=== PATIENT | female | born 1985 | race American Indian/Alaskan Native ===

== ENCOUNTER 2017-12-30 11:56 | Emergency (ER) | payer OTHER ==
[~2017-12-30] VITALS: Ht 162.6 cm; Wt 63.5 kg
[~2017-12-30 11:56] MED LIST: Cleocin HCl150 MG PO; IBUP400 PO; IBUP600 PO; KETO50 PO; Lantus100 UNIT/1 SC; NAPR500 PO; Norco 5-325 Ta1 EACH PO; Peridex480 ML SS; TRAM50 PO; Ultram50 MG PO; Veetids 500500 MG PO
[2017-12-30] MEDS ORDERED: Veetids 500500 MG PO (12:35)
== END 2017-12-30 12:40 | disposition home or self-care (01) ==
LOC: ER 11:56
DX: K02.9 Dental caries, unspecified (principal); E11.9 Type 2 diabetes mellitus without complications; F17.210 Nicotine dependence, cigarettes, uncomplicated
CPT/HCPCS: 99282

== ENCOUNTER → 2018-11-08 | Outpatient (CLI) | payer OTHER | END | disposition home or self-care (01) | LOC: LAB 14:01 → LAB SHORT 14:01 | DX: E11.65 Type 2 diabetes mellitus with hyperglycemia (principal) | CPT/HCPCS: 82043 ==

== ENCOUNTER 2019-12-21 10:12 | Emergency (ER) | payer OTHER ==
[~2019-12-21] VITALS: Ht 162.6 cm; Wt 65.4 kg
[2019-12-21] MEDS ORDERED: Bactrim Ds Tab1 EACH PO (11:26)
[2019-12-21] MEDS ORDERED: CEPH500 PO (11:26)
== END 2019-12-21 11:40 | disposition home or self-care (01) ==
LOC: ER 10:12
DX: E11.621 Type 2 diabetes mellitus with foot ulcer (principal); L97.529 Non-pressure chronic ulcer of other part of left foot with unspecified severity; L02.612 Cutaneous abscess of left foot; F17.210 Nicotine dependence, cigarettes, uncomplicated
CPT/HCPCS: 73620; 99283-25

== ENCOUNTER 2020-03-23 13:56 | Emergency (ER) | payer OTHER ==
[~2020-03-23] VITALS: Ht 162.6 cm; Wt 64.9 kg
[~2020-03-23 13:56] MED LIST changes: +Bactrim Ds Tab1 EACH PO; +CEPH500 PO
[2020-03-23 15:45] LABS: Source, Urine Clean Catch
[2020-03-23 15:57] LABS: Appearance, Urine Hazy (Clear); Color, Urine Yellow (P-Yellow); Glucose Qualitative, Urine 4+ (Neg); Ketones, Urine 1+ (Neg); Leukocyte Esterase, Urine 1+ (Neg); Nitrite, Urine Neg (Neg); Protein, Urine Neg (Neg)
[2020-03-23 15:58] LABS: Bilirubin, Urine Neg (Neg); Blood, Urine Neg (Neg); Urobilinogen, Urine NORM (Normal)
[2020-03-23 16:08] LABS: Bacteria Mod /hpf; Red Blood Cells, Urine 0-2 /hpf (0-2); Squamous Epithelial Cells Mod /hpf (Few); White Blood Cells, Urine 0-2 /hpf (0-5)
[2020-03-23 17:05] LABS: BASOPHILS ABSOLUTE AUTO 0.06 K/mm3 (0.00-0.23); BASOPHILS PERCENT AUTO 1 % (0-2); EOSINOPHILS ABSOLUTE AUTO 0.19 K/mm3 (0.00-0.68); EOSINOPHILS PERCENT AUTO 3 % (0-6); Hematocrit 42.5 % (33.0-51.0); Hemoglobin 13.8 g/dL (11.5-16.0); IMMATURE GRAN ABSOLUTE AUTO 0.04 K/mm3 (0.00-0.10); IMMATURE GRAN PERCENT AUTO 1 % (0-1); LYMPHOCYTES ABSOLUTE AUTO 2.49 K/mm3 (0.84-5.20); LYMPHOCYTES PERCENT AUTO 35 % (21-46); MONOCYTES ABSOLUTE AUTO 0.46 K/mm3 (0.16-1.47); MONOCYTES PERCENT AUTO 6 % (4-13); Mean Corpuscular HGB 28.5 pg (26.0-34.0); Mean Corpuscular HGB Conc 32.5 g/dL (31.5-36.5); Mean Corpuscular Volume 88 fL (80-100); Mean Platelet Volume 9.9 fL (9.1-12.4); NEUTROPHILS ABSOLUTE AUTO 3.94 K/mm3 (1.96-9.15); NEUTROPHILS PERCENT AUTO 55 % (41-73); Platelet Count 266 K/mm3 (150-400); RDW Coefficient Variation 13.1 % (11.7-14.2); RDW Standard Deviation 42.4 fL (35.1-46.3); Red Blood Cell Count 4.84 M/mm3 (3.80-5.20); White Blood Cell Count 7.18 K/mm3 (4.00-11.30)
[2020-03-23] MEDS ORDERED: METF500 PO (17:13)
[2020-03-23 17:21] LABS: Anion Gap 5 mmol/L (6-16); Blood Urea Nitrogen 9 mg/dL (8-24); Bun/Creatinine Ratio 16.6 (12.0-20.0); CO2, Blood 27 mmol/L (21-32); Calcium, Blood 8.5 mg/dL (8.5-10.1); Chloride, Blood 102 mmol/L (98-108); Creatinine, Blood 0.54 mg/dL (0.40-1.00); Glomerular Filtration Rate >60 (60-); Glucose, Blood 408 mg/dL (70-99); Sodium, Blood 134 mmol/L (136-145)
== END 2020-03-23 18:16 | disposition home or self-care (01) ==
LOC: ER 13:56
PROVIDERS: Emergency Medicine; Physician Assistant
DX: R10.2 Pelvic and perineal pain (principal); E11.65 Type 2 diabetes mellitus with hyperglycemia; F17.210 Nicotine dependence, cigarettes, uncomplicated
CPT/HCPCS: 36415; 76830; 76856; 80048; 81001; 81025; 85025; 87086; 87147; 99284-25

== ENCOUNTER 2021-02-28 14:42 | Emergency (ER) | payer OTHER ==
[~2021-02-28] VITALS: Ht 162.6 cm; Wt 74.8 kg
[~2021-02-28 14:42] MED LIST changes: +METF500 PO
[2021-02-28 17:06] LABS: Source, Urine Clean Catch
[2021-02-28 17:12] LABS: Appearance, Urine Clear (Clear); Bilirubin, Urine Neg (Neg); Blood, Urine Neg (Neg); Color, Urine Yellow (P-Yellow); Glucose Qualitative, Urine 4+ (Neg); Ketones, Urine Neg (Neg); Leukocyte Esterase, Urine 1+ (Neg); Nitrite, Urine Neg (Neg); Protein, Urine Neg (Neg); Specific Gravity, Urine 1.015 (1.003-1.022); Urobilinogen, Urine NORM (Normal)
[2021-02-28 17:24] LABS: Bacteria Few /hpf; Mucus Light (0-Heavy); Red Blood Cells, Urine 0-2 /hpf (0-2); Squamous Epithelial Cells Mod /hpf (Few); Transitional Epithelial Cells Few /hpf (0-Rare); Yeast/Fungi Urine Few /hpf
== END 2021-02-28 18:13 | disposition left against medical advice (07) ==
LOC: ER 14:42
PROVIDERS: Physician Assistant
DX: N89.8 Other specified noninflammatory disorders of vagina (principal); Z53.21 Procedure and treatment not carried out due to patient leaving prior to being seen by health care provider
CPT/HCPCS: 81001; 81025; 82947; 99283

== ENCOUNTER 2021-08-18 09:36 | Emergency (ER) | payer OTHER ==
[~2021-08-18] VITALS: Ht 162.6 cm; Wt 63.5 kg
[2021-08-18 10:52] LABS: Source, Urine Clean Catch
[2021-08-18 11:10] LABS: Appearance, Urine Clear (Clear); Bilirubin, Urine Neg (Neg); Blood, Urine Neg (Neg); Color, Urine Yellow (P-Yellow); Glucose Qualitative, Urine 4+ (Neg); Ketones, Urine Neg (Neg); Leukocyte Esterase, Urine Neg (Neg); Nitrite, Urine Neg (Neg); Protein, Urine Neg (Neg); Urobilinogen, Urine NORM (Normal)
[2021-08-18] MEDS ORDERED: Bactrim Ds Tab1 EACH PO (12:00)
[2021-08-18] MEDS ORDERED: IBU600 M1 PO (12:01)
== END 2021-08-18 12:14 | disposition home or self-care (01) ==
LOC: ER 09:36
PROVIDERS: Physician Assistant
DX: L02.414 Cutaneous abscess of left upper limb (principal); E11.9 Type 2 diabetes mellitus without complications; F17.210 Nicotine dependence, cigarettes, uncomplicated; Z79.84 Long term (current) use of oral hypoglycemic drugs
CPT/HCPCS: 10060; 81003; 81025; 99283-25; A9270

== ENCOUNTER 2021-12-16 13:09 | Emergency (ER) | payer OTHER ==
[~2021-12-16] VITALS: Ht 157.5 cm; Wt 56.7 kg
[~2021-12-16 13:09] MED LIST changes: +IBU600 M1 PO; +MONDOXYNE NL100 MG PO; +ONDA4ODT MM
[2021-12-16] MEDS ORDERED: Bactrim Ds Tab1 EACH PO (15:00)
[2021-12-16] MEDS ORDERED: CEPH500 PO (15:00)
== END 2021-12-16 15:07 | disposition home or self-care (01) ==
LOC: ER 13:09
DX: L02.413 Cutaneous abscess of right upper limb (principal); E11.9 Type 2 diabetes mellitus without complications; F17.210 Nicotine dependence, cigarettes, uncomplicated; Z79.84 Long term (current) use of oral hypoglycemic drugs; Z79.899 Other long term (current) drug therapy
CPT/HCPCS: 99283

== ENCOUNTER 2024-07-12 14:38 | Emergency (ER) | payer OTHER ==
[~2024-07-12] VITALS: Ht 170.2 cm; Wt 63.5 kg
[~2024-07-12 14:38] MED LIST changes: +Amoxicillin500 MG PO
[2024-07-12 15:02] VITALS: BP 150/89
[2024-07-12 15:35] LABS: BASOPHILS ABSOLUTE AUTO 0.07 K/mm3 (0.00-0.23); BASOPHILS PERCENT AUTO 1 % (0-2); EOSINOPHILS ABSOLUTE AUTO 0.23 K/mm3 (0.00-0.68); EOSINOPHILS PERCENT AUTO 2 % (0-6); Hematocrit 37.3 % (33.0-51.0); Hemoglobin 12.6 g/dL (11.5-16.0); IMMATURE GRAN ABSOLUTE AUTO 0.04 K/mm3 (0.00-0.10); IMMATURE GRAN PERCENT AUTO 0 % (0-1); LYMPHOCYTES ABSOLUTE AUTO 2.02 K/mm3 (0.84-5.20); LYMPHOCYTES PERCENT AUTO 20 % (21-46); MONOCYTES ABSOLUTE AUTO 0.57 K/mm3 (0.16-1.47); MONOCYTES PERCENT AUTO 6 % (4-13); Mean Corpuscular HGB 28.6 pg (26.0-34.0); Mean Corpuscular HGB Conc 33.8 g/dL (31.5-36.5); Mean Corpuscular Volume 85 fL (80-100); Mean Platelet Volume 9.6 fL (9.1-12.4); NEUTROPHILS ABSOLUTE AUTO 7.01 K/mm3 (1.96-9.15); NEUTROPHILS PERCENT AUTO 71 % (41-73); Platelet Count 289 K/mm3 (150-400); RDW Coefficient Variation 12.8 % (11.7-14.2); RDW Standard Deviation 39.6 fL (35.1-46.3); Red Blood Cell Count 4.41 M/mm3 (3.80-5.20); White Blood Cell Count 9.94 K/mm3 (4.00-11.30)
[2024-07-12 15:44] LABS: Albumin, Blood 3.2 g/dL (3.4-5.0); Albumin/Globulin Ratio 0.6 (0.8-1.8); Bilirubin, Total 0.2 mg/dL (0.1-1.0); Bun/Creatinine Ratio 22.1 (12.0-20.0); Calcium, Blood 9.2 mg/dL (8.5-10.1); Creatinine, Blood 0.68 mg/dL (0.40-1.00); Globulin, Blood 5.2 g/dL (2.2-4.0); Total Protein, Blood 8.4 g/dL (6.4-8.2)
[2024-07-12] MEDS ORDERED: Ketorolac Tromethamine 15mg Vial IM ONE (15:45)
[2024-07-12] MEDS ORDERED: SULTRIDS PO (17:58)
== END 2024-07-12 18:20 | disposition home or self-care (01) ==
LOC: ER 14:38
PROVIDERS: Physician Assistant
DX: L03.115 Cellulitis of right lower limb (principal); L02.611 Cutaneous abscess of right foot; E11.9 Type 2 diabetes mellitus without complications; F17.210 Nicotine dependence, cigarettes, uncomplicated
CPT/HCPCS: 10060; 73630; 80053; 85025; 96372-59; 99283-25; J1885

== ENCOUNTER 2024-11-13 11:27 | Emergency (ER) | payer OTHER ==
[~2024-11-13] VITALS: Ht 162.6 cm; Wt 60.8 kg
[~2024-11-13 11:27] MED LIST changes: +SULTRIDS PO
[2024-11-13 11:40] VITALS: BP 171/98
[2024-11-13 12:20] LABS: BASOPHILS ABSOLUTE AUTO 0.06 K/mm3 (0.00-0.23); BASOPHILS PERCENT AUTO 1 % (0-2); EOSINOPHILS ABSOLUTE AUTO 0.22 K/mm3 (0.00-0.68); EOSINOPHILS PERCENT AUTO 4 % (0-6); Hematocrit 38.7 % (33.0-51.0); Hemoglobin 13.1 g/dL (11.5-16.0); IMMATURE GRAN ABSOLUTE AUTO 0.01 K/mm3 (0.00-0.10); IMMATURE GRAN PERCENT AUTO 0 % (0-1); LYMPHOCYTES ABSOLUTE AUTO 2.48 K/mm3 (0.84-5.20); LYMPHOCYTES PERCENT AUTO 45 % (21-46); MONOCYTES ABSOLUTE AUTO 0.44 K/mm3 (0.16-1.47); MONOCYTES PERCENT AUTO 8 % (4-13); Mean Corpuscular HGB 28.7 pg (26.0-34.0); Mean Corpuscular HGB Conc 33.9 g/dL (31.5-36.5); Mean Corpuscular Volume 85 fL (80-100); Mean Platelet Volume 9.5 fL (9.1-12.4); NEUTROPHILS ABSOLUTE AUTO 2.32 K/mm3 (1.96-9.15); NEUTROPHILS PERCENT AUTO 42 % (41-73); Platelet Count 280 K/mm3 (150-400); RDW Coefficient Variation 13.4 % (11.7-14.2); RDW Standard Deviation 41.5 fL (35.1-46.3); Red Blood Cell Count 4.56 M/mm3 (3.80-5.20); White Blood Cell Count 5.53 K/mm3 (4.00-11.30)
[2024-11-13 13:00] LABS: Albumin, Blood 3.7 g/dL (3.4-5.0); Albumin/Globulin Ratio 0.9 (0.8-1.8); Bilirubin, Total 0.4 mg/dL (0.1-1.0); Bun/Creatinine Ratio 23.7 (12.0-20.0); Calcium, Blood 8.9 mg/dL (8.5-10.1); Creatinine, Blood 0.63 mg/dL (0.40-1.00); Potassium, Blood 4.5 mmol/L (3.5-5.5); Total Protein, Blood 7.7 g/dL (6.4-8.2)
[2024-11-13] MEDS ORDERED: BACITO TOP (14:34)
[2024-11-13] MEDS ORDERED: Cephalexin500 MG PO (14:34)
== END 2024-11-13 14:37 | disposition home or self-care (01) ==
LOC: ER 11:27
PROVIDERS: Student in an Organized Health Care Education/Training Program
DX: L03.211 Cellulitis of face (principal); E11.65 Type 2 diabetes mellitus with hyperglycemia
CPT/HCPCS: 70487; 80053; 85025; 99283-25; Q9967

== ENCOUNTER 2024-11-15 15:44 | Emergency (ER) | payer OTHER ==
[~2024-11-15] VITALS: Ht 162.6 cm; Wt 63.5 kg
[~2024-11-15 15:44] MED LIST changes: +BACITO TOP; +Cephalexin500 MG PO
[2024-11-15 15:53] VITALS: BP 143/110
[2024-11-15] MEDS ORDERED: Ondansetron 4 MG SoluTab SL ONE (15:55)
[2024-11-15] MEDS ORDERED: Ketorolac Tromethamine 15mg Vial IM ONE (15:55)
[2024-11-15] MEDS ORDERED: Diphth,Pertuss(Acell),Tet Vac 0.5 ML VIAL IM ONE (15:55)
[2024-11-15] MEDS ORDERED: LORazepam 1 MG Tab PO ONE (16:05)
[2024-11-15] MEDS ORDERED: Amoxicillin/Clavulanate K 875 MG Tab PO ONE (16:40)
[2024-11-15] MEDS ORDERED: AMOCLA875 PO (17:22)
== END 2024-11-15 18:03 | disposition home or self-care (01) ==
LOC: ER 15:44
DX: S51.851A Open bite of right forearm, initial encounter (principal); E11.8 Type 2 diabetes mellitus with unspecified complications; F17.210 Nicotine dependence, cigarettes, uncomplicated
CPT/HCPCS: 12002; 73130; 90471; 90715; 96372; 99283-25; A9270; J1885

== ENCOUNTER 2024-11-18 09:37 | Emergency (ER) | payer OTHER ==
[~2024-11-18] VITALS: Ht 162.6 cm; Wt 59.9 kg
[~2024-11-18 09:37] MED LIST changes: +AMOCLA875 PO
[2024-11-18 10:04] VITALS: BP 141/100
[2024-11-18] MEDS ORDERED: OxyCODONE 5 mg/Acetamin 325 mg TABLET PO ONE (12:20)
[2024-11-19] MEDS ORDERED: Ultram50 MG PO (11:56)
== END 2024-11-18 12:30 | disposition home or self-care (01) ==
LOC: ER 09:37
DX: S61.551D Open bite of right wrist, subsequent encounter (principal); S61.250D Open bite of right index finger without damage to nail, subsequent encounter; E11.9 Type 2 diabetes mellitus without complications; F17.210 Nicotine dependence, cigarettes, uncomplicated; W54.0XXD Bitten by dog, subsequent encounter; Z79.899 Other long term (current) drug therapy
CPT/HCPCS: 99282; A9270

== ENCOUNTER 2024-11-19 11:39 | Emergency (ER) | payer OTHER ==
[~2024-11-19] VITALS: Ht 162.6 cm; Wt 61.2 kg
[2024-11-19 11:44] VITALS: BP 157/90
[2024-11-19] MEDS ORDERED: Ultram50 MG PO (11:56)
== END 2024-11-19 12:00 | disposition home or self-care (01) ==
LOC: ER 11:39
DX: Z48.00 Encounter for change or removal of nonsurgical wound dressing (principal); E11.9 Type 2 diabetes mellitus without complications; F17.210 Nicotine dependence, cigarettes, uncomplicated; Z79.2 Long term (current) use of antibiotics; Z79.899 Other long term (current) drug therapy
CPT/HCPCS: 99282

== ENCOUNTER 2024-11-20 10:41 | Emergency (ER) | payer OTHER ==
[~2024-11-20] VITALS: Ht 162.6 cm; Wt 59.9 kg
[2024-11-20 10:49] VITALS: BP 140/98
[2024-11-20] MEDS ORDERED: OxyCODONE 5 mg/Acetamin 325 mg TABLET PO ONE (11:50)
== END 2024-11-20 13:56 | disposition home or self-care (01) ==
LOC: ER 10:41
DX: S61.451D Open bite of right hand, subsequent encounter (principal); W54.0XXD Bitten by dog, subsequent encounter; E11.9 Type 2 diabetes mellitus without complications; F17.200 Nicotine dependence, unspecified, uncomplicated
CPT/HCPCS: 99282; A9270

== ENCOUNTER 2024-11-25 10:47 | Emergency (ER) | payer OTHER ==
[~2024-11-25] VITALS: Ht 162.6 cm; Wt 59.9 kg
[2024-11-25 11:00] VITALS: BP 110/77
[2024-11-25 14:28] LABS: BASOPHILS ABSOLUTE AUTO 0.06 K/mm3 (0.00-0.23); BASOPHILS PERCENT AUTO 1 % (0-2); EOSINOPHILS ABSOLUTE AUTO 0.18 K/mm3 (0.00-0.68); EOSINOPHILS PERCENT AUTO 3 % (0-6); Hematocrit 42.4 % (33.0-51.0); Hemoglobin 14.5 g/dL (11.5-16.0); IMMATURE GRAN ABSOLUTE AUTO 0.03 K/mm3 (0.00-0.10); IMMATURE GRAN PERCENT AUTO 0 % (0-1); LYMPHOCYTES ABSOLUTE AUTO 2.43 K/mm3 (0.84-5.20); LYMPHOCYTES PERCENT AUTO 35 % (21-46); MONOCYTES ABSOLUTE AUTO 0.35 K/mm3 (0.16-1.47); MONOCYTES PERCENT AUTO 5 % (4-13); Mean Corpuscular HGB 28.9 pg (26.0-34.0); Mean Corpuscular HGB Conc 34.2 g/dL (31.5-36.5); Mean Corpuscular Volume 85 fL (80-100); Mean Platelet Volume 9.5 fL (9.1-12.4); NEUTROPHILS ABSOLUTE AUTO 3.83 K/mm3 (1.96-9.15); NEUTROPHILS PERCENT AUTO 56 % (41-73); Platelet Count 335 K/mm3 (150-400); RDW Coefficient Variation 13.2 % (11.7-14.2); Red Blood Cell Count 5.02 M/mm3 (3.80-5.20); White Blood Cell Count 6.88 K/mm3 (4.00-11.30)
[2024-11-25 14:56] LABS: Albumin, Blood 3.4 g/dL (3.4-5.0); Albumin/Globulin Ratio 0.7 (0.8-1.8); Bilirubin, Total 0.3 mg/dL (0.1-1.0); Bun/Creatinine Ratio 24.7 (12.0-20.0); Calcium, Blood 9.2 mg/dL (8.5-10.1); Creatinine, Blood 0.65 mg/dL (0.40-1.00); Globulin, Blood 4.7 g/dL (2.2-4.0); Total Protein, Blood 8.1 g/dL (6.4-8.2)
[2024-11-25] MEDS ORDERED: OxyCODONE 5 mg/Acetamin 325 mg TABLET PO ONE (15:00)
== END 2024-11-25 15:22 | disposition home or self-care (01) ==
LOC: ER 10:47
PROVIDERS: Student in an Organized Health Care Education/Training Program
DX: S61.451D Open bite of right hand, subsequent encounter (principal); E11.9 Type 2 diabetes mellitus without complications; F17.210 Nicotine dependence, cigarettes, uncomplicated; Z79.2 Long term (current) use of antibiotics; Z79.899 Other long term (current) drug therapy; W54.0XXD Bitten by dog, subsequent encounter
CPT/HCPCS: 73201; 80053; 85025; 99284-25; A9270; Q9967

== ENCOUNTER 2024-11-27 11:26 | Emergency (ER) | payer OTHER ==
[~2024-11-27] VITALS: Ht 162.6 cm; Wt 59.9 kg
[2024-11-27 11:42] VITALS: BP 158/89
[2024-11-27] MEDS ORDERED: Ibuprofen 600 MG Tab PO ONE (11:50)
== END 2024-11-27 12:30 | disposition home or self-care (01) ==
LOC: ER 11:26
DX: Z48.00 Encounter for change or removal of nonsurgical wound dressing (principal); Z59.00 Homelessness unspecified; F17.210 Nicotine dependence, cigarettes, uncomplicated; E11.8 Type 2 diabetes mellitus with unspecified complications
CPT/HCPCS: 99282; A9270

== ENCOUNTER 2024-11-29 09:56 | Emergency (ER) | payer OTHER ==
[~2024-11-29] VITALS: Ht 162.6 cm; Wt 59.9 kg
[2024-11-29 10:05] VITALS: BP 137/90
== END 2024-11-29 11:50 | disposition home or self-care (01) ==
LOC: ER 09:56
DX: S61.451D Open bite of right hand, subsequent encounter (principal); E11.9 Type 2 diabetes mellitus without complications; F17.210 Nicotine dependence, cigarettes, uncomplicated; W54.0XXD Bitten by dog, subsequent encounter
CPT/HCPCS: 93005; 93010; 99282

== ENCOUNTER 2024-12-04 10:46 | Inpatient (IN) | payer OTHER ==
[~2024-12-04] VITALS: Ht 162.6 cm; Wt 59.9 kg
[2024-12-04] MEDS ORDERED: Lidocaine/Tetracaine/Epinephr 3 ML GEL SYRINGE TOP ONE (12:50)
[2024-12-04 12:53] LABS: BASOPHILS ABSOLUTE AUTO 0.04 K/mm3 (0.00-0.23); BASOPHILS PERCENT AUTO 1 % (0-2); EOSINOPHILS ABSOLUTE AUTO 0.14 K/mm3 (0.00-0.68); EOSINOPHILS PERCENT AUTO 3 % (0-6); Hematocrit 35.9 % (33.0-51.0); Hemoglobin 12.4 g/dL (11.5-16.0); IMMATURE GRAN ABSOLUTE AUTO 0.01 K/mm3 (0.00-0.10); IMMATURE GRAN PERCENT AUTO 0 % (0-1); LYMPHOCYTES ABSOLUTE AUTO 2.03 K/mm3 (0.84-5.20); LYMPHOCYTES PERCENT AUTO 45 % (21-46); MONOCYTES ABSOLUTE AUTO 0.34 K/mm3 (0.16-1.47); MONOCYTES PERCENT AUTO 8 % (4-13); Mean Corpuscular HGB 28.6 pg (26.0-34.0); Mean Corpuscular HGB Conc 34.5 g/dL (31.5-36.5); Mean Corpuscular Volume 83 fL (80-100); Mean Platelet Volume 9.3 fL (9.1-12.4); NEUTROPHILS ABSOLUTE AUTO 1.99 K/mm3 (1.96-9.15); NEUTROPHILS PERCENT AUTO 44 % (41-73); Platelet Count 363 K/mm3 (150-400); RDW Coefficient Variation 13.2 % (11.7-14.2); RDW Standard Deviation 40.2 fL (35.1-46.3); Red Blood Cell Count 4.33 M/mm3 (3.80-5.20); White Blood Cell Count 4.55 K/mm3 (4.00-11.30)
[2024-12-04 13:33] LABS: Albumin, Blood 3.5 g/dL (3.4-5.0); Albumin/Globulin Ratio 0.9 (0.8-1.8); Bilirubin, Total 0.3 mg/dL (0.1-1.0); Bun/Creatinine Ratio 18.2 (12.0-20.0); Calcium, Blood 8.6 mg/dL (8.5-10.1); Creatinine, Blood 0.61 mg/dL (0.40-1.00); Globulin, Blood 4.1 g/dL (2.2-4.0); Total Protein, Blood 7.6 g/dL (6.4-8.2)
[2024-12-04] MEDS ORDERED: FLU VACC TS2024-25(6MOS UP)/PF 45 MCG/0.5 ML SYRINGE IM SCH (15:35)
[2024-12-04] MEDS ORDERED: Insulin Regular 100 Unit/ML 1ML Dose IV ONE (15:40)
[2024-12-04] MEDS ORDERED: HYDROcodone 5-APAP 325 TAB PO PRN (15:40)
[2024-12-04] MEDS ORDERED: Nicotine Polacrilex 2 MG Gum PO PRN (15:45)
[2024-12-04] MEDS ORDERED: Ampicillin Sod/Sulbactam Sod 1.5 GM in NS 100 ML IV SCH (16:00)
[2024-12-04] MEDS ORDERED: Insulin Isoph 70 / Reg 30 100 Unit/ML 10ML Vial SC SCH (16:30)
[2024-12-04 16:43] VITALS: BP 152/102
[2024-12-04] MEDS ORDERED: NS 250 ML IV PRN (17:30)
--- NOTE | 2024-12-04 17:30 | NUR ---
ADMISSION: REPORT RECIEVED FROM ED RN. PT A/O, UPON ARRIVAL. PT HAS HTN, PT ALSO REPORTS PAIN 6/10. WILL MEDICATE PER EMAR AND RECHECK BP. EFFECTED ARM ELEVATED ON PILLOW, WOUND IS INTAKE RN. CBG CHECKED, AND IS 486. DR. ACEVEDO NOTIFIED AT 1730. ORDER TO CHECK CBG AGAIN IN 2 HOURS AND GIVEN 5 UNITS REGULAR SQ INSULIN IF ABOVE 250. WILL MONITOR. PT ORIENTED TO ROOM AND CALL LIGHT IN REACH.
--- NOTE | 2024-12-04 18:29 | NUR ---
SUMMARY: SEE PREVIOUS RN NOTE. NO ACUTE CHANGE SINCE ADMIT. WILL REPORT TO NOC RN
[2024-12-04 19:15] VITALS: BP 116/83
[2024-12-04] MEDS ORDERED: Insulin Regular 100 UNIT/ML 10ML Vial SC ONE (19:45)
[2024-12-04 20:17] LABS: Glucose, Blood 497 mg/dL (70-99)
[2024-12-04 21:48] LABS: U Amphetamine Screen DETECTED; U Barbituate Screen Not Detected; U Benzodiazapine Screen Not Detected; U Buprenorphine Screen Not Detected; U Cannabinoids Screen Not Detected; U Cocaine Screen Not Detected; U Methadone Screen Not Detected; U Methamphetamine Screen DETECTED; U Opiates Screen Not Detected; U Oxycodone Screen Not Detected; U Phencyclidine Screen Not Detected
[2024-12-05] VITALS (17 sets, daily range): BP systolic 104–148; BP diastolic 63–102
--- NOTE | 2024-12-05 01:11 | NUR ---
0000- DURING CHG WIPE DOWN PT DROPPED A BAGGIE. IN BAGGIE WAS A WHITE POWER. NURSE SUP WAS NOTIFIED AND SECURITY TOOK POSESSION OF BAGGIE. PT WAS ASKED IF THEY HAD ANYMORE SUBSTANCES OR LIGHTERS OR FLAMABLE ITEMS. PT DENIES.
--- NOTE | 2024-12-05 05:43 | NUR ---
NOC SUMMARY- PT CBG AT BEGINNING OF SHIFT WAS >500. PROVIDER CALLED AND LAB GLUCOSE DRAW WAS ORDERED. PROVIDER SAID TO GIVE THE ORDERED HUMLIN R DOSE OF 5 UNITS. PT GLUCOSE DECREASED. PT WAS EDUCATED ON NPO STATUS AT MIDNIGHT. THIS AM CRUMBS WERE FOUND IN THE BED. PT DENIES EATING OR DRINKING. PT FRIEND STAYED THE NIGHT WITH PT. PT WAS FOUND WITH POSSIBLE DRUGS. SECURITY DISPOSED OF ITEM. PT HAS BEEN SLEEPING FOR MOST OF SHIFT. PT DENIES PAIN. PT VOIDING. CALL LIGHT IN REACH.
--- NOTE | 2024-12-05 07:39 | NUR ---
NOTE GOT REPORT FROM NIGHT NURSE ON SURG FLOOR. PT TRANSFERED TO FLOOR AT 0730. PT REPORTS BEING NPO THROUGH NIGHT. PT TRANFERED BY BED TO FLOOR. PT INDEPENDENT IN ROOM. PULSES PRESENT. PT HAS FRIEND AT BEDSIDE. PT REPORTS NO PAIN BUT "GOT MEDICINE LAST NIGHT." PT REPORTED "NOT WANTING IND SURGERY", I REPORTED I'LL LET HOSPITALIST KNOW. DR. CASAS STOPPED BY, PT IN BATHROOM, HE REPORTED "KEEP HER NPO TILL I COME BACK." PT ORIENTED TO CALL LIGHT/FALL PRECAUTIONS/UNIT. BED IN LOWEST POSITION. CALL LIGHT IN REACH. BLOOP PRESSURE 104/63, ON ARRIVAL.
[2024-12-05] MEDS ORDERED: Lactated Ringer's 1,000 ML IV SCH (08:25)
--- NOTE | 2024-12-05 08:57 | NUR ---
NOTE PT JUST WENT TO DAY SURG. DR. CASAS CAME BY TO ASSESS PT. PT REPORTING "GO AHEAD" FOR SURG. PT WENT BY BED. REPORTED TO TRANSPORT NURSE THAT HADN'T GAVE INSULIN YET. LOVENOX HELD. DAY SURG REPORTED THEY HAVE URINE FOR RESULT
[2024-12-05] MEDS ORDERED: Enoxaparin 40 MG/0.4 ML SYR SC SCH (09:00)
--- NOTE | 2024-12-05 09:20 | NUR ---
PT INTO SDS FROM 338 VIA [facility]AN. History, Chart, Medications and Allergies reviewed before start of procedure. Pre-Op teaching done. Pt verbalizes understanding. Patient confirms NPO status and agrees with scheduled surgery.
[2024-12-05] MEDS ORDERED: Insulin Regular 100 UNIT/ML 10ML Vial IV ONE (09:35)
[2024-12-05] MEDS ORDERED: Ondansetron HCl 2 MG / ML 2ML Vial IV PRN (09:45)
[2024-12-05] MEDS ORDERED: Lidocaine HCl 2% 20 ML MDV INJ ONE (09:46)
[2024-12-05] MEDS ORDERED: FentaNYL Citrate 50 MCG/ML 2 ML Injection IV ONE (09:47)
[2024-12-05] MEDS ORDERED: propofoL 20 ML IV ONE (09:47)
[2024-12-05] MEDS ORDERED: CeFAZolin Sodium 1000 mg Vial IV ONE ×2 (09:55)
[2024-12-05] MEDS ORDERED: Bupivacaine 0.5% W/EPI 1:200000 SDV 10ML INJ ONE (10:01)
[2024-12-05] MEDS ORDERED: Bupivacaine 0.5% W/EPI 1:200000 SDV 30 ML Vial EPI ONE (10:04)
--- NOTE | 2024-12-05 10:12 | NUR ---
12/05/24 1012 Bere Joiner NOTED: MULTIPLE LACERATIONS TO PTS RIGHT HAND, PT STATED THEY ARE ALL FROM A DOG BITE
[2024-12-05] MEDS ORDERED: Ondansetron HCl 2 MG / ML 2ML Vial IV ONE (10:15)
[2024-12-05] MEDS ORDERED: FentaNYL Citrate 50 MCG/ML 2 ML Injection ONE (10:42)
[2024-12-05] MEDS ORDERED: Insulin Human Lispro 100 Units/ML 3ML Syringe SC SCH (16:30)
--- NOTE | 2024-12-05 17:21 | NUR ---
SHIFT SUMMARY PT IS A&OX4. PT ADMITTED DUE TO DOG BITE ON R HAND. PT HAD A R HAND IRRIGATION AND DEBRIDEMENT, THIS AM. DAY SURGERY NURSE REPORTED HAND HAS GAUZE AND EUSEBIA WRAPPED, SITE IS C/D/I, NO SIGN OF BLEEDING. POST OP VITALS BEING OBSERVED. VSS. PT REPORTS PAIN. PAIN MANAGED PER EMAR. PT ON CONSISTENT CARB DIET. PT EATS ADEQUATE. NO REPORTS OF NAUSEA/VOMMITING. PT REPORTS NO CHEST PAIN OR SOB. PT HAS [facility] ORDER FOR BLOOD SUGARS. WHEN PT CAME FROM OR THIS AFTERNOON, THE GLORIA REPORTED HER BLOODSUGAR WAS 385 THIS AFTERNOON POST MD UPDATING INSULIN ORDERS. GLORIA REPORTED NOTIFYING DOCTOR. 15 UNITS WAS GIVEN FOR CORRECTION. MD NOTIFIED TO GIVE INSULIN FOR LUNCH COVERAGE. LATEST BLOOD SUGAR WAS 152. PT ON ROOM AIR. PT HAS VISITOR AT BEDSIDE. PT IN BED, BED IN LOWEST POSITION. PT CALL LIGHT IN REACH.
[2024-12-05] MEDS ORDERED: Insulin Glargine-Yfgn 100 Unit/mL 3 ML SYR SC SCH (21:00)
[2024-12-06 03:09] VITALS: BP 115/69
--- NOTE | 2024-12-06 04:34 | NUR ---
Patient slept through night. Patient denies chest pain, SOB, and N/V. Patient pain controlled by PRN's. Patient IV AXB infused. Patient AxO x4. Patient SBA to bathroom. Will continue to monitor until day shift resumes cares.
[2024-12-06 07:29] VITALS: BP 114/87
--- NOTE | 2024-12-06 11:42 | NUR ---
NOTE FOUND TOBACCO PRODUCT IN PT BEDDING, EDUCATED PT ABOUT TOBACCO FREE CAMPUS. PT REPORTED NOT HAVING A PROSECUTING ATTORNEY. THIS RN TOLD PT THAT I CAN KEEP TOBACCO PRODUCT IN LOCKED DRAWER. LOCKED TOBACCO PRODUCT IN DRAWER, FOUND PT OUTSIDE OF ROOM PULLING AT DRAWER TO ACCESS TOBACCO PRODUCT "FOR HER BOYFRIEND PRESENT." I GAVE TOBACCO PRODUCT TO "BOYFRIEND" EDUCATED HIM ABOUT IT BEING TOBACCO FREE CAMPUS AND THAT TOBACCO PRODUCT CANT BE ON CAMPUS. NOTIFIED WATER QUALITY TECHNICIAN.
[2024-12-06 15:15] VITALS: BP 117/66
[2024-12-06] MEDS ORDERED: AMOX-CLAV 500-1 EAC5 PO (17:01)
[2024-12-06] MEDS ORDERED: NOVOLIN 70100 UNIT/3 SC (17:16)
--- NOTE | 2024-12-06 18:28 | NUR ---
DISCHARGE NOTE PT A&OX4. PT ADMITED DUE TO DOG BITE ON R HAND. PT REPORTED PAIN. NO BLOOD NOTED ON EUSEBIA WRAP. PAIN MANAGED PER EMAR. PT INDEPENDENT IN ROOM. PT EATS AND VOIDS ADEQUATE. PT RECEIVED IV ANTIBIOTICS. PT MEDS FAXED TO PERFERED PHARMACY. DR. FATIMA PUT DISCHARGE ORDERS IN, REPORTED "TALKING TO SURGEON, AND SURGEON CLEARED FOR DISCHARGE." PT BLOOD SUGAR WAS CHECKED PRIOR TO DINNER. BLOOD SUGAR WAS 359, NOTIFIED CHARGE NURSE. GRAB OPERATOR NOTIFIED MD. NO NEW ORDERS ADDED. PT SENT WITH WOUND CARE SUPPLIES. PT EDUCATED ON DISCHARGE INSTRUCTIONS AND MEDS. PT LEFT WITH BELONGINGS, PT ESCORTED OUT BY COUNCILOR VIA WHEELCHAIR.
[2024-12-08 14:40] LABS: AMPHETAMINE,URN,QUANT 2894 ng/mL; MDA,URN,QUANT <200 ng/mL; MDEA,URN,QUANT <200 ng/mL; MDMA,URN,QUANT <200 ng/mL; METHAMPHETAMINE,URN,QUANT >10000 ng/mL; PHENTERMINE,URN,QUANT <200 ng/mL
== END 2024-12-06 18:27 | disposition home or self-care (01) | DRG 580 ==
LOC: ER 10:46 → SURS 10:47 → MEDS 10:47 → SURS 16:40 → MEDS 12-05 07:29 → ENPENDDIS 12-06 12:36 → MEDS 12-06 18:27
PROVIDERS: Orthopaedic Surgery Sports Medicine; Physician Assistant; ADMIT Internal Medicine
PROC: 0JBJ0ZZ Excision of Right Hand Subcutaneous Tissue and Fascia, Open Approach (ICD-10-PCS; principal; 2024-12-05 09:30)
DX: S61.451A Open bite of right hand, initial encounter (principal); Z59.00 Homelessness unspecified; E11.65 Type 2 diabetes mellitus with hyperglycemia; F17.210 Nicotine dependence, cigarettes, uncomplicated; W54.0XXA Bitten by dog, initial encounter; Z79.4 Long term (current) use of insulin
CPT/HCPCS: 36415; 80053; 81025; 82947; 85025; 96365; 96376; 99284; A9270; G0378; G0480; J0295; J0690; J1650; J1815; J2405; J2704; J3010; J7050; J7120

== ENCOUNTER 2024-12-17 10:54 | Emergency (ER) | payer OTHER ==
[~2024-12-17] VITALS: Ht 162.6 cm; Wt 60.8 kg
[~2024-12-17 10:54] MED LIST changes: +AMOX-CLAV 500-1 EAC5 PO; +NOVOLIN 70100 UNIT/3 SC
[2024-12-17 11:55] LABS: BASOPHILS ABSOLUTE AUTO 0.06 K/mm3 (0.00-0.23); BASOPHILS PERCENT AUTO 1 % (0-2); EOSINOPHILS PERCENT AUTO 3 % (0-6); Hematocrit 37.8 % (33.0-51.0); Hemoglobin 13.1 g/dL (11.5-16.0); IMMATURE GRAN ABSOLUTE AUTO 0.01 K/mm3 (0.00-0.10); IMMATURE GRAN PERCENT AUTO 0 % (0-1); LYMPHOCYTES ABSOLUTE AUTO 2.52 K/mm3 (0.84-5.20); LYMPHOCYTES PERCENT AUTO 42 % (21-46); MONOCYTES ABSOLUTE AUTO 0.33 K/mm3 (0.16-1.47); MONOCYTES PERCENT AUTO 6 % (4-13); Mean Corpuscular HGB 28.9 pg (26.0-34.0); Mean Corpuscular HGB Conc 34.7 g/dL (31.5-36.5); Mean Corpuscular Volume 83 fL (80-100); Mean Platelet Volume 9.4 fL (9.1-12.4); NEUTROPHILS ABSOLUTE AUTO 2.93 K/mm3 (1.96-9.15); NEUTROPHILS PERCENT AUTO 48 % (41-73); Platelet Count 259 K/mm3 (150-400); RDW Coefficient Variation 13.5 % (11.7-14.2); RDW Standard Deviation 41.2 fL (35.1-46.3); Red Blood Cell Count 4.54 M/mm3 (3.80-5.20); White Blood Cell Count 6.05 K/mm3 (4.00-11.30)
[2024-12-17 13:12] LABS: Beta-hydroxybutyrate 1.4 mg/dL (0.2-2.8)
[2024-12-17 13:13] LABS: Albumin, Blood 3.4 g/dL (3.4-5.0); Albumin/Globulin Ratio 0.8 (0.8-1.8); Bilirubin, Total 0.4 mg/dL (0.1-1.0); Calcium, Blood 8.6 mg/dL (8.5-10.1); Creatinine, Blood 0.59 mg/dL (0.40-1.00); Globulin, Blood 4.1 g/dL (2.2-4.0); Potassium, Blood 4.5 mmol/L (3.5-5.5); Total Protein, Blood 7.5 g/dL (6.4-8.2)
[2024-12-17 15:15] LABS: Source, Urine Clean Catch
[2024-12-17 15:22] LABS: Base Excess Venous 2.5 mmol/L; Bicarbonate Venous 25.6 mmol/L (24.0-30.0); PCO2 Venous 54.3 mmHg (38-42); pH Blood Venous 7.33 (7.34-7.37)
[2024-12-17 15:24] LABS: Appearance, Urine Clear (Clear); Bilirubin, Urine Neg (Neg); Blood, Urine Neg (Neg); Color, Urine Yellow (P-Yellow); Glucose Qualitative, Urine 4+ (Neg); Ketones, Urine Neg (Neg); Leukocyte Esterase, Urine Neg (Neg); Nitrite, Urine Neg (Neg); Protein, Urine 1+ (Neg); Specific Gravity, Urine 1.015 (1.003-1.022); Urobilinogen, Urine NORM (Normal)
[2024-12-17] MEDS ORDERED: NS 1,000 ML IV SCH (15:30)
[2024-12-17] MEDS ORDERED: NS 1,000 ML IV ONE (15:35)
[2024-12-17 15:56] VITALS: BP 152/99
== END 2024-12-17 15:57 | disposition home or self-care (01) ==
LOC: ER 10:54
PROVIDERS: Physician Assistant
DX: E11.65 Type 2 diabetes mellitus with hyperglycemia (principal); S61.451D Open bite of right hand, subsequent encounter; F17.210 Nicotine dependence, cigarettes, uncomplicated; Z79.2 Long term (current) use of antibiotics; Z79.4 Long term (current) use of insulin; W54.0XXD Bitten by dog, subsequent encounter
CPT/HCPCS: 80053; 82010; 82803; 85025; 93005; 93010; 99283-25; J7030

== ENCOUNTER 2024-12-22 12:56 | Emergency (ER) | payer OTHER ==
[~2024-12-22] VITALS: Ht 157.5 cm; Wt 60.8 kg
[2024-12-22 13:15] VITALS: BP 138/96
== END 2024-12-22 14:28 | disposition home or self-care (01) ==
LOC: ER 12:56
DX: S61.451D Open bite of right hand, subsequent encounter (principal); E11.9 Type 2 diabetes mellitus without complications; F17.210 Nicotine dependence, cigarettes, uncomplicated; W54.0XXD Bitten by dog, subsequent encounter; Z79.4 Long term (current) use of insulin
CPT/HCPCS: 99283

== ENCOUNTER → 2024-12-31 | Outpatient (CLI) | payer OTHER | END | disposition home or self-care (01) | LOC: LAB 17:36 → LAB SHORT 17:36 | DX: S61.451D Open bite of right hand, subsequent encounter (principal) | CPT/HCPCS: 87070; 87077; 87186; 87205 ==

== ENCOUNTER 2025-05-10 01:50 | Emergency (ER) | payer OTHER ==
[~2025-05-10] VITALS: Ht 162.6 cm; Wt 59.0 kg
[2025-05-10 02:10] VITALS: BP 141/98
== END 2025-05-10 02:40 | disposition home or self-care (01) ==
LOC: ER 01:50
DX: S00.86XA Insect bite (nonvenomous) of other part of head, initial encounter (principal); L02.212 Cutaneous abscess of back [any part, except buttock and flank]; F17.210 Nicotine dependence, cigarettes, uncomplicated; W57.XXXA Bitten or stung by nonvenomous insect and other nonvenomous arthropods, initial encounter; Z79.4 Long term (current) use of insulin
CPT/HCPCS: 99282

== ENCOUNTER 2025-10-06 17:39 | Emergency (ER) | payer OTHER ==
[~2025-10-06] VITALS: Ht 162.6 cm; Wt 63.5 kg
[2025-10-06 18:55] LABS: Source, Urine Clean Catch
[2025-10-06 19:03] LABS: BASOPHILS ABSOLUTE AUTO 0.06 K/mm3 (0.00-0.23); BASOPHILS PERCENT AUTO 1 % (0-2); EOSINOPHILS ABSOLUTE AUTO 0.16 K/mm3 (0.00-0.68); EOSINOPHILS PERCENT AUTO 2 % (0-6); Hematocrit 38.6 % (33.0-51.0); Hemoglobin 13.1 g/dL (11.5-16.0); IMMATURE GRAN ABSOLUTE AUTO 0.03 K/mm3 (0.00-0.10); IMMATURE GRAN PERCENT AUTO 0 % (0-1); LYMPHOCYTES ABSOLUTE AUTO 2.22 K/mm3 (0.84-5.20); LYMPHOCYTES PERCENT AUTO 24 % (21-46); MONOCYTES ABSOLUTE AUTO 0.64 K/mm3 (0.16-1.47); MONOCYTES PERCENT AUTO 7 % (4-13); Mean Corpuscular HGB Conc 33.9 g/dL (31.5-36.5); Mean Corpuscular Volume 85 fL (80-100); NEUTROPHILS ABSOLUTE AUTO 6.29 K/mm3 (1.96-9.15); NEUTROPHILS PERCENT AUTO 67 % (41-73); NRBC ABSOLUTE 0.00 K/mm3 (0.00-0.02); NRBC Auto 0.0 /100 WBC (0.0-0.2); Platelet Count 288 K/mm3 (150-400); RDW Coefficient Variation 12.8 % (11.7-14.2); RDW Standard Deviation 39.6 fL (35.1-46.3)
[2025-10-06 19:13] LABS: Bilirubin, Urine Neg (Neg); Glucose Qualitative, Urine 4+ (Neg); Ketones, Urine Neg (Neg); Leukocyte Esterase, Urine 2+ (Neg); Protein, Urine 2+ (Neg); Specific Gravity, Urine 1.010 (1.003-1.022); Urobilinogen, Urine NORM (Normal)
[2025-10-06] MEDS ORDERED: Metoclopramide HCl 5MG / ML 2ML Vial IV ONE ×2 (19:15)
[2025-10-06 19:30] LABS: U Amphetamine Screen DETECTED; U Barbiturate Screen Not Detected; U Benzodiazapine Screen Not Detected; U Cocaine Screen Not Detected; U Methadone Screen Not Detected; U Methamphetamine Screen DETECTED; U Opiates Screen Not Detected
[2025-10-06 19:31] LABS: U Buprenorphine Screen Not Detected; U Cannabinoids Screen Not Detected; U Oxycodone Screen Not Detected; U Phencyclidine Screen Not Detected
[2025-10-06 19:32] LABS: Color, Urine Pale Yellow (P-Yellow)
[2025-10-06 19:33] LABS: Alanine Aminotransfer (ALT/SGP 26.0 U/L (12-78); Albumin, Blood 3.7 g/dL (3.4-5.0); Albumin/Globulin Ratio 1.0 (0.8-1.8); Anion Gap 12.0 mmol/L (3-11); Aspartate Aminotrans (AST/SGOT 25.0 U/L (12-37); Bilirubin, Total 0.3 mg/dL (0.1-1.0); Blood Urea Nitrogen 13.0 mg/dL (8-24); CO2, Blood 24.0 mmol/L (21-32); Calcium, Blood 8.6 mg/dL (8.5-10.1); Chloride, Blood 103.0 mmol/L (98-108); Creatinine, Blood 0.59 mg/dL (0.40-1.00); Globulin, Blood 3.7 g/dL (2.2-4.0); Glucose, Blood 398.0 mg/dL (70-99); Potassium, Blood 4.0 mmol/L (3.5-5.5); Sodium, Blood 135.0 mmol/L (136-145); Total Protein, Blood 7.4 g/dL (6.4-8.2)
[2025-10-06 19:36] LABS: Red Blood Cells, Urine 0-2 /hpf (0-2); Trichomonas Few /hpf
[2025-10-06] MEDS ORDERED: CEPH500 PO (20:21)
[2025-10-06] MEDS ORDERED: RX Prepack 2 Sprays Naloxone HCL 4 MG/SPRAY UD ONE ×2 (20:25→23:00)
[2025-10-06 22:15] VITALS: BP 112/75
== END 2025-10-06 23:18 | disposition home or self-care (01) ==
LOC: ER 17:39
PROVIDERS: Student in an Organized Health Care Education/Training Program
DX: N30.00 Acute cystitis without hematuria (principal); E11.65 Type 2 diabetes mellitus with hyperglycemia; F15.10 Other stimulant abuse, uncomplicated; F17.210 Nicotine dependence, cigarettes, uncomplicated; Z79.4 Long term (current) use of insulin
CPT/HCPCS: 80053; 81001; 81025; 85025; 87086; 93005; 93010; 96374; 99285-25; A9270; J2765